=== PATIENT | male | born 1940 | race Caucasian/White ===

== ENCOUNTER 2016-11-14 16:21 | Outpatient (CLI) | payer OTHER, MEDICARE ==
[~2016-11-14 16:21] MED LIST: ALPR0.5T96 PO; ASPI-1063 PO
[2016-11-14 16:57] LABS: BILIRUBIN,URINE NEGATIVE (NEGATIVE); BLOOD, URINE NEGATIVE (NEGATIVE); CLARITY/URINE CLEAR (CLEAR); COLOR,URINE YELLOW (YELLOW); GLUCOSE,URINE NEGATIVE (NEGATIVE); KETONES,URINE TRACE (NEGATIVE); LEUKOCYTE ESTERASE ,URINE NEGATIVE (NEGATIVE); NITRITE, URINE NEGATIVE (NEGATIVE); PH,URINE 5.5 (5.0-8.0); PROTEIN URINE 1+ (NEGATIVE); UROBILINOGEN,URINE 0.2 (0.2-1.0)
[2016-11-14 17:31] LABS: BACTERIA,URINE FEW /HPF (None Seen); FINE GRANULAR CASTS,URINE 0-10 /LPF (None Seen); HYALINE CASTS, URINE 0-10 /LPF (None Seen); MUCUS,URINE 1+ /LPF (None Seen); WBC,URINE 0-3 /HPF (0-3)
[2016-11-15 12:08] LABS: % FREE PSA 30.1 % (.); FREE PSA 10.9 ng/mL
[2016-11-15 16:18] LABS: PROSTATE SPECIFIC AG TOTAL 36.2 ng/mL (0.0-4.0)
== END 2016-11-14 19:20 | disposition home or self-care (01) ==
LOC: SLB 16:21
PROVIDERS: ATTEND Internal Medicine
DX: N40.0 Benign prostatic hyperplasia without lower urinary tract symptoms (principal); R97.20 Elevated prostate specific antigen [PSA]
CPT/HCPCS: 36415; 81000-TC; 84153; 87086

== ENCOUNTER 2017-06-09 13:42 | Outpatient (CLI) | payer OTHER, MEDICARE | END 2017-06-09 17:29 | disposition home or self-care (01) | LOC: SRD 13:42 | PROVIDERS: ATTEND Internal Medicine | DX: J18.9 Pneumonia, unspecified organism (principal); J40 Bronchitis, not specified as acute or chronic; I25.10 Atherosclerotic heart disease of native coronary artery without angina pectoris; I70.90 Unspecified atherosclerosis | CPT/HCPCS: 71020-TC; 93005 ==

== ENCOUNTER 2017-08-14 15:30 | Outpatient (CLI) | payer OTHER, MEDICARE | END 2017-08-14 19:12 | disposition home or self-care (01) | LOC: SCT 15:30 | PROVIDERS: ATTEND Internal Medicine | DX: I25.10 Atherosclerotic heart disease of native coronary artery without angina pectoris (principal); I70.0 Atherosclerosis of aorta; M41.9 Scoliosis, unspecified; J84.10 Pulmonary fibrosis, unspecified | CPT/HCPCS: 71270-TC; 72110 ==

== ENCOUNTER 2018-02-04 12:22 | Emergency (ER) | payer OTHER, MEDICARE ==
[~2018-02-04] VITALS: Ht 175.3 cm; Wt 76.2 kg
[2018-02-04 12:25] VITALS: BP_SYST 154
[2018-02-04] MEDS ORDERED: ALPR1TAB2 PO (12:58)
[2018-02-04] MEDS ORDERED: ATEN-41 PO (12:58)
[2018-02-04] MEDS ORDERED: LIP80 PO (12:58)
[2018-02-04] MEDS ORDERED: CAT.1 PO (12:58)
[2018-02-04] MEDS ORDERED: NOR10 PO (12:58)
[2018-02-04] MEDS ORDERED: GLU500 PO (12:58)
[2018-02-04] MEDS ORDERED: CARV12.548 PO (12:58)
[2018-02-04] MEDS ORDERED: DUTA0.5C PO (12:58)
[2018-02-04 13:42] LABS: BASOPHILS % (AUTO) 0.4 % (0.0-2.0); EOSINOPHILS # (AUTO) 0.2 K/uL (0.0-0.4); EOSINOPHILS % (AUTO) 3.8 % (0.0-4.0); HEMATOCRIT 38.5 % (36-54); HEMOGLOBIN 12.4 g/dL (14.0-18.0); LYMPHOCYTES # (AUTO) 1.4 K/uL (1.0-5.5); LYMPHOCYTES % (AUTO) 22.5 % (20.5-51.5); MEAN CORPUSCULAR HEMOGLOBIN 28 pg (27-31); MEAN CORPUSCULAR HGB CONC 32 % (32-36); MEAN CORPUSCULAR VOLUME 86 fL (79.0-98.0); MONOCYTES # (AUTO) 0.7 K/uL (0.0-1.0); NEUTROPHILS # (AUTO) 4.1 K/uL (1.8-7.7); NEUTROPHILS % (AUTO) 62.3 % (40.0-70.0); PLATELET COUNT (AUTO) 258 K/uL (130-430); RED BLOOD CELL COUNT(AUTO) 4.49 MIL/uL (4.2-6.2); RED CELL DISTRIBUTION WIDTH 13.3 % (9.0-15.0); WHITE BLOOD COUNT (AUTO) 6.4 K/uL (4.8-10.8)
[2018-02-04 13:50] LABS: ANION GAP 5 (5-15); CALCIUM 8.8 mg/dL (8.4-11.0); CHLORIDE 107 mmol/L (98-107); CREATININE 1.05 mg/dL (0.55-1.30); GLUCOSE 96 mg/dL (70-99); SODIUM SERUM 139 mmol/L (136-145); UREA NITROGEN, BLOOD 11 mg/dL (8-21)
[2018-02-04 13:52] LABS: PROTHROMBIN TIME 9.9 SECS (9.5-12.5)
[2018-02-04 13:55] LABS: ALANINE AMINOTRANSFERASE 26 U/L (12-78); ALBUMIN 3.4 g/dL (3.4-4.8); ASPARTATE AMINOTRANSFERASE 19 U/L (10-37); TOTAL BILIRUBIN 0.3 mg/dL (0.0-1.0)
[2018-02-04 15:03] VITALS: BP_SYST 141
== END 2018-02-04 15:06 | disposition home or self-care (01) ==
LOC: SED 12:22
DX: S30.0XXA Contusion of lower back and pelvis, initial encounter (principal); S09.90XA Unspecified injury of head, initial encounter; I10 Essential (primary) hypertension; Z86.79 Personal history of other diseases of the circulatory system; Z95.1 Presence of aortocoronary bypass graft; Z79.82 Long term (current) use of aspirin; Z79.899 Other long term (current) drug therapy; W19.XXXA Unspecified fall, initial encounter; Y93.89 Activity, other specified; Y92.89 Other specified places as the place of occurrence of the external cause; Y99.8 Other external cause status
CPT/HCPCS: 36415; 70450-TC; 80053; 82550-TC; 83880; 84484; 85025; 85610-TC; 85730-TC; 93005; 99285

== ENCOUNTER 2021-12-03 12:25 | Outpatient (CLI) | payer OTHER, MEDICARE ==
[~2021-12-03 12:25] MED LIST changes: -ALPR0.5T96 PO; +ALPR1TAB2 PO; -ASPI-1063 PO; +ASPI-1393 PO; +ATEN-41 PO; +CARV12.548 PO; +CAT.1 PO; +DUTA0.5C PO; +GLU500 PO; +LIP80 PO; +NOR10 PO
== END 2021-12-03 19:48 | disposition home or self-care (01) ==
LOC: SCT 12:25
PROVIDERS: ATTEND Internal Medicine
DX: K57.30 Diverticulosis of large intestine without perforation or abscess without bleeding (principal); N40.0 Benign prostatic hyperplasia without lower urinary tract symptoms; M41.86 Other forms of scoliosis, lumbar region; M47.816 Spondylosis without myelopathy or radiculopathy, lumbar region; N20.0 Calculus of kidney
CPT/HCPCS: 76376